=== PATIENT | female | born 1990 | race American Indian/Alaskan Native ===

== ENCOUNTER 2016-06-10 20:51 | Emergency (ER) | payer MEDICARE, MEDICAID ==
[2016-06-10] MEDS ORDERED: Sodium Chloride 0.9% 10 ML Syringe FLUSH PRN (20:57)
[2016-06-10 22:02] LABS: CHLORIDE,CL 110 mmol/L (98-107); SODIUM,NA 146 mmol/L (136-145)
[2016-06-10] MEDS ORDERED: Sodium Chloride 0.9% 1,000 ML IV ONE (22:04)
[2016-06-10] MEDS ORDERED: Ibuprofen Susp 100 MG/5 ML 5 ML UD Cup PO ONE (22:04)
[2016-06-10] MEDS ORDERED: diphenhydrAMINE 50 MG/ML SDV IVPUSH ONE (22:04)
[2016-06-10] MEDS ORDERED: Ibuprofen 200 MG Tab PO ONE (22:17)
[2016-06-10 22:33] VITALS: BP 130/70
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
== END 2016-06-10 23:05 | disposition home or self-care (01) ==
LOC: VM.ED 20:51
DX: G40.909 Epilepsy, unspecified, not intractable, without status epilepticus (principal); Z79.899 Other long term (current) drug therapy; Z88.8 Allergy status to other drugs, medicaments and biological substances; Z88.0 Allergy status to penicillin; R31.9 Hematuria, unspecified
CPT/HCPCS: 70450; 72125; 80053; 80305; 80349; 81001; 81025; 83735; 84100; 84443; 85025; 85610; 93005; 96361; 96374; 99284; 99285; A9270; G0480; J1200; J7030

== ENCOUNTER 2016-07-15 13:14 | Emergency (ER) | payer MEDICARE, MEDICAID ==
[2016-07-15 13:27] VITALS: BP 110/61
[2016-07-15 14:22] LABS: CHLORIDE,CL 107 mmol/L (98-107); SODIUM,NA 141 mmol/L (136-145)
--- NOTE | 2016-07-16 08:48 | ER ---
Date of Service: 07/15/2016 SUBJECTIVE: The patient presents to the emergency room complaining that the Implanon device in her left upper arm became dislodged from the subcutaneous tissue approximately 1 to 2 months ago. She states that she had unprotected sex approximately 4 days ago and since that time has developed some brown spotting. She states that her last menstrual period is approximately 2 months ago. To note, she also did have unprotected sex approximately a month ago as well. She states that she has been extremely fatigued and has been experiencing some mild nausea. She is requesting a test and evaluation for her fatigue as well as her Implanon device. The patient was seen approximately a week ago at [facility] and was worked up for bacterial vaginosis and other STDs all of which were negative. PAST MEDICAL HISTORY: 1. Seizure disorder. 2. Anoxic brain injury. 3. Bipolar. MEDICATIONS: 1. Clonazepam 2 mg p.o. t.i.d. 2. Quetiapine 200 mg p.o. at bedtime. 3. Neurontin 600 mg p.o. t.i.d. 4. Abilify 30 mg p.o. daily. ALLERGIES: 1. Strattera. 2. Wellbutrin. 3. Toradol. 4. Lamictal. 5. Naproxen. 6. Penicillin. REVIEW OF SYSTEMS: General: No fever or chills. HEENT: No sore throat, rhinorrhea, or congestion. Respiratory: No shortness of breath. Cardiac: Denies any substernal chest pain. No jaw, arm, neck, or back pain. Gastrointestinal: No vomiting or diarrhea. She is nauseated. Genitourinary: Denies any dysuria. Musculoskeletal: No myalgias or arthralgias. Neurologic: No fainting, blackouts, or lightheadedness. OBJECTIVE: General: This is a 25-year-old female patient, who is in no acute distress. Vital Signs: Blood pressure is 110/61, pulse rate is 74, temperature is 36.4, respiratory rate is 14, O2 saturations 100%. Skin: Warm, pink, and dry. HEENT: Mouth, oral mucosa is moist. Lungs: Clear to auscultation. Heart: Regular rate and rhythm. Abdomen: Soft, nontender. There is no hepatosplenomegaly or masses noted. Extremities: Without edema. Neurologic: She is alert and oriented. Answers all questions appropriately. Her speech is fluent. Gait is within normal limits. LABORATORY DATA: CBC was obtained, was all noted to be within normal limits as was her comprehensive metabolic panel. Her urine hCG was negative. ASSESSMENT: 1. Possible dislodgement of Implanon device. 2. Vaginal spotting. 3. Dysfunctional uterine bleeding. PLAN: The patient will be discharged. I did advise to follow up with her [employer] regarding this Implanon device. I told her that we do not replace these in the emergency room and she would need to do this in a clinic on a clinic basis. She states that her periods are extremely infrequent and not regular and this is likely the cause of her mild spotting. We will have her follow up in the clinic if not gradually improving or if this is continuing to be a problem for her. All questions were answered. MWK: 07/15/2016 18:20:24 MODL: 07/15/2016 23:00:12 /[id number]
== END 2016-07-15 15:09 | disposition home or self-care (01) ==
LOC: VM.ED 13:14
DX: N93.8 Other specified abnormal uterine and vaginal bleeding (principal); F31.9 Bipolar disorder, unspecified; G40.909 Epilepsy, unspecified, not intractable, without status epilepticus; Z87.820 Personal history of traumatic brain injury; Z79.899 Other long term (current) drug therapy; Z88.8 Allergy status to other drugs, medicaments and biological substances; Z88.0 Allergy status to penicillin
CPT/HCPCS: 36415; 80053; 81025; 85025; 99283-GF; 99284